=== PATIENT | female | born 1955 | race African-American/Black ===

== ENCOUNTER 2017-10-15 16:31 | Inpatient (IN) | payer MEDICAID, OTHER ==
[~2017-10-15] VITALS: Ht 161.3 cm; Wt 62.1 kg
[2017-10-15] MEDS ORDERED: SODIUM CHLORIDE 0.9% 1,000 ML IV ONE (17:00)
[2017-10-15] MEDS ORDERED: HYDROCODONE/ACETAMINOPHEN 5/325MG TABLET PO ONE (17:00)
[2017-10-15] MEDS ORDERED: CLONIDINE 0.2MG TABLET PO ONE (19:00)
[2017-10-15 19:03] LABS: BASOPHILS % 0.5 % (0.0-2.0); EOSINOPHILS % 0.6 % (0.0-5.0); HEMATOCRIT. 41.3 % (36.0-48.0); HEMOGLOBIN. 14.2 g/dL (12.0-16.0); LYMPHOCYTES % 25.7 % (20.0-50.0); MEAN CORPUSCULAR VOLUME 87.1 fL (81.0-99.0); MONOCYTES % 6.6 % (2.0-8.0); NEUTROPHILS % 66.6 % (40.0-76.0); PLATELET 202 x1000/uL (130-400); RED BLOOD CELL COUNT 4.74 mill/uL (4.2-5.4); RED CELL DISTRIBUTION WIDTH 13.2 % (11.6-14.6)
[2017-10-15 19:11] LABS: CHLORIDE 104 mEq/L (98-107); PARTIAL THROMBOPLASTIN TIME 24.3 sec (23.4-31.0); PROTHROMBIN TIME 10.2 sec (9.1-11.1)
[2017-10-15] MEDS ORDERED: ASPIRIN 325MG EC TABLET PO ONE (20:15)
[2017-10-15 23:00] VITALS: BP 147/78
[2017-10-16] MEDS ORDERED: CLONIDINE 0.1MG TABLET PO PRN (00:45)
[2017-10-16] MEDS ORDERED: MAGNESIUM/ALUMINUM HYDROXIDE/SIMETHICONE 30ML UDC PO PRN (00:45)
[2017-10-16] MEDS ORDERED: IPRATROPIUM/ALBUTEROL 0.5-3(2.5)MG/3ML NEB INH PRN (00:45)
[2017-10-16] MEDS ORDERED: DOCUSATE SODIUM 100MG CAPSULE PO PRN (00:45)
[2017-10-16] MEDS ORDERED: ONDANSETRON HCL 4MG/2ML INJ IV PRN (00:45)
[2017-10-16] MEDS ORDERED: ACETAMINOPHEN 325MG TABLET PO PRN (00:45)
[2017-10-16] MEDS: HYDROCODONE/ACETAMINOPHEN 5/325MG TABLET PO PRN (01:32)
[2017-10-16 04:00] VITALS: BP 130/69
[2017-10-16 08:00] VITALS: BP 134/64
[2017-10-16 08:30] LABS: CHLORIDE 108 mEq/L (98-107)
[2017-10-16 08:43] LABS: CREATINE KINASE 56 IU/L (26-192)
[2017-10-16 08:45] LABS: CREATINE KINASE MB FRACTION < 1.0 ng/mL (0.5-3.6)
[2017-10-16] MEDS: ASPIRIN 81MG EC TABLET PO SCH (09:50)
[2017-10-16] MEDS: ENOXAPARIN 40MG/0.4ML SYR SUBCUT SCH (09:55)
[2017-10-16 12:00] VITALS: BP 129/63
[2017-10-16 16:00] VITALS: BP 134/68
[2017-10-16 17:24] LABS: CLARITY URINE TURBID (CLEAR); COLOR URINE YELLOW (YELLOW); KETONES URINE NEGATIVE (NEGATIVE); LEUKOCYTE ESTERASE URINE TRACE (NEGATIVE); NITRITE URINE NEGATIVE (NEGATIVE); OCCULT BLOOD URINE NEGATIVE (NEGATIVE); PH URINE 5.5 (4.5-8.0); PROTEIN URINE NEGATIVE (NEGATIVE); SPECIFIC GRAVITY URINE 1.024 (1.005-1.030); UROBILINOGEN URINE 0.2 E.U./dL (0.2-1.0)
[2017-10-16 18:00] LABS: *AMPHETAMINES SCREEN URINE NEGATIVE (NEGATIVE); CANNABINOID URINE SCREEN NEGATIVE (NEGATIVE); METHADONE URINE SCREEN NEGATIVE (NEGATIVE); OPIATES URINE SCREEN PRESUMTIVE POSITIVE (NEGATIVE); PHENCYCLIDINE URINE SCREEN NEGATIVE (NEGATIVE)
[2017-10-16 18:01] LABS: *BARBITURATES SCREEN URINE NEGATIVE (NEGATIVE); *BENZODIAZEPINES SCREEN URINE NEGATIVE (NEGATIVE); *COCAINE SCREEN URINE NEGATIVE (NEGATIVE)
[2017-10-16 18:21] LABS: CREATINE KINASE 59 IU/L (26-192)
[2017-10-16 18:22] LABS: CREATINE KINASE MB FRACTION < 1.0 ng/mL (0.5-3.6)
[2017-10-16 20:00] VITALS: BP 155/81
[2017-10-16 21:42] LABS: HEMOGLOBIN 13.3 g/dL (12.0-16.0); MEAN CORPUSCULAR HEMOGLOBIN 30.4 pg (28.0-32.0); MEAN CORPUSCULAR VOLUME 89.1 fL (81.0-99.0); PLATELET 197 x1000/uL (130-400); RED BLOOD CELL COUNT 4.37 mill/uL (4.2-5.4); RED CELL DISTRIBUTION WIDTH 13.1 % (11.6-14.6)
[2017-10-17] VITALS: BP 149/81
[2017-10-17] MEDS: HYDROCODONE/ACETAMINOPHEN 5/325MG TABLET PO PRN (02:54)
[2017-10-17 04:00] VITALS: BP 127/72
[2017-10-17 05:41] LABS: BASOPHILS % 0.6 % (0.0-2.0); EOSINOPHILS % 1.4 % (0.0-5.0); HEMOGLOBIN. 13.3 g/dL (12.0-16.0); LYMPHOCYTES % 27.7 % (20.0-50.0); MEAN CORPUSCULAR HEMOGLOBIN 30.7 pg (28.0-32.0); MEAN PLATELET VOLUME 7.3 fl (7.4-10.4); MONOCYTES % 8.5 % (2.0-8.0); NEUTROPHILS % 61.8 % (40.0-76.0); PLATELET 174 x1000/uL (130-400); RED BLOOD CELL COUNT 4.32 mill/uL (4.2-5.4); RED CELL DISTRIBUTION WIDTH 12.9 % (11.6-14.6)
[2017-10-17 06:01] LABS: CHLORIDE 107 mEq/L (98-107)
[2017-10-17 06:16] LABS: HDL CHOLESTEROL 46 mg/dL (40-59)
[2017-10-17 06:19] LABS: LDL CHOLESTEROL 128 mg/dL (5-100)
[2017-10-17 06:20] LABS: PHOSPHORUS 3.4 mg/dL (2.5-4.9)
[2017-10-17 08:00] VITALS: BP 122/60
[2017-10-17] MEDS: ASPIRIN 81MG EC TABLET PO SCH (09:30)
[2017-10-17] MEDS: ENOXAPARIN 40MG/0.4ML SYR SUBCUT SCH (09:30)
[2017-10-17 12:00] VITALS: BP 128/73
[2017-10-17 16:00] VITALS: BP 132/67
[2017-10-17 20:00] VITALS: BP 143/63
[2017-10-18] VITALS: BP 133/64
[2017-10-18 04:00] VITALS: BP 128/52
[2017-10-18 07:14] LABS: BASOPHILS % 0.6 % (0.0-2.0); EOSINOPHILS % 1.2 % (0.0-5.0); HEMATOCRIT. 39.4 % (36.0-48.0); HEMOGLOBIN. 13.5 g/dL (12.0-16.0); LYMPHOCYTES % 26.4 % (20.0-50.0); MEAN CORPUSCULAR HEMOGLOBIN 30.3 pg (28.0-32.0); MEAN CORPUSCULAR VOLUME 88.4 fL (81.0-99.0); MEAN PLATELET VOLUME 7.5 fl (7.4-10.4); MONOCYTES % 7.6 % (2.0-8.0); NEUTROPHILS % 64.2 % (40.0-76.0); PLATELET 181 x1000/uL (130-400); RED BLOOD CELL COUNT 4.46 mill/uL (4.2-5.4); RED CELL DISTRIBUTION WIDTH 12.9 % (11.6-14.6)
[2017-10-18 08:00] VITALS: BP 133/76
[2017-10-18] MEDS: ASPIRIN 81MG EC TABLET PO SCH (08:09)
[2017-10-18] MEDS: ENOXAPARIN 40MG/0.4ML SYR SUBCUT SCH (08:09)
[2017-10-18 09:58] LABS: CHLORIDE 108 mEq/L (98-107)
[2017-10-18 10:04] LABS: PHOSPHORUS 3.2 mg/dL (2.5-4.9)
[2017-10-18 12:00] VITALS: BP 120/64
[2017-10-18 16:00] VITALS: BP_SYST 145; BP_SYST 153; BP_SYST 159; BP_DIAS 78; BP_DIAS 79; BP_DIAS 81
[2017-10-18 16:49] VITALS: BP 159/81
== END 2017-10-18 17:22 | disposition home or self-care (01) | DRG 48 ==
LOC: ER 16:31 → 7WST 20:37 → ENRESERV 21:03
PROVIDERS: ADMIT Internal Medicine; ATTEND Internal Medicine
DX: G90.8 Other disorders of autonomic nervous system (principal); E83.51 Hypocalcemia; R00.1 Bradycardia, unspecified; E86.0 Dehydration; I10 Essential (primary) hypertension
CPT/HCPCS: 36415; 70450; 70551; 71045; 72125; 80048; 80053; 80061; 80305; 81003; 82040; 82306; 82550; 82553; 83036; 83735; 83880; 83970; 84100; 84443; 84484; 85025; 85027; 85610; 85730; 87086; 93005; 93306; 93880; 96360; 99285; J1650; J7030